=== PATIENT | male | born 1975 | race Two or more races ===

== ENCOUNTER 2025-05-04 23:58 | Emergency (ER) | payer MEDICAID, OTHER ==
[~2025-05-04] VITALS: Ht 185.4 cm; Wt 127.5 kg
[2025-05-04 23:59] VITALS: BP 154/95; RESP 20; TEMP 97.5; O2SAT 100
[2025-05-05 00:11] VITALS: PULSE 96
--- NOTE | 2025-05-05 00:25 | ECG ---
[facility] Test Date: 2025-05-05 Test Time: 00:11:13 Pat Name: SEBASTIEN LOCKETT Department: ED Room: Gender: Messenger Office: [place]SA : 1975 Requested By: BRUCE VOGT Order Number: [id number] Reading MD: Isiah Adam Measurements Intervals [place] Rate: 96 P: 73 TN: 172 QRS: 82 QRSD: 79 T: 60 QT: 353 QTc: 447 Interpretive Statements Sinus rhythm Electronically Signed On 05-05-2025 13:12:47 PDT by Isiah Adam Please click the below link to view image of tracing.
--- NOTE | 2025-05-05 00:27 | ED.PDOC ---
SOB-HPI HPI Comments 49 year old male presents to the ED with a chief complaint of shortness of breath onset today. Patient's states patient has been experiencing BLE swelling for the past 2 weeks, has been worsening. Patient's works at hospice care, was recommended to give patient Gabapentin to improve swelling. After taking gabapentin, patient is lethargic, experiencing shortness of breath. Denies any PMHx. Patient is a poor historian. No other symptoms or modifying factors present at this time. Chief Complaint: Shortness of Breath Time Seen by MD: 00:15 Reviewed notes: Medications, Allergies Information Source: Patient, Spouse Mode of Arrival: Ambulatory Severity: Moderate Timing: Hours Duration: Since onset Context: At Rest PE Risk Factors: None History of: None Prehospital treatment: Other (Gabapentin) Modifying Factors: Nothing Associated Signs and Symptoms: Leg Swelling Past Medical History PAST MEDICAL HISTORY: Denies Surgical History: Denies all surgeries Family History Family History: Reviewed,noncontributory to illness, No family hx of Cancer, No family hx of DM, No family hx of Heart kenzie, No family hx of HTN, No family hx ofKidney kenzie, No family hx of Liver kenzie, No family hx of Lung kenzie, No family hx of Stroke Social History Smoker: Non-Smoker Alcohol: Denies ETOH Use Drugs: Denies Drug Use Lives In: Home Constitutional: reports: others (lethargic); denies: chills, diaphoresis, fatigue, fever, malaise, sweats, weakness EENTM: denies: blurred vision, double vision, ear bleeding, ear discharge, ear drainage, ear pain, ear ringing, eye pain, eye redness, hearing loss, mouth pain, mouth swelling, nasal discharge, nose bleeding, nose congestion, nose pain, photophobia, tearing, throat pain, throat swelling, voice changes, others Respiratory: reports: shortness of breath; denies: cough, hemoptysis, orthopnea, SOB at rest, SOB with excertion, stridor, wheezing, others Cardiovascular: denies: chest pain, dizzy spells, diaphoresis, Dyspnea on exertion, edema, irregular heart beat, left arm pain, lightheadedness, palpitations, PND, syncope, others Gastrointestinal: denies: abdomen distended, abdominal pain, blood streaked bowels, constipated, diarrhea, dysphagia, difficulty swallowing, hematemesis, melena, nausea, poor appetite, poor fluid intake, rectal bleeding, rectal pain, vomiting, others Genitourinary: denies: burning, dysuria, flank pain, frequency, hematuria, incontinence, penile discharge, penile sore, pain, testicle pain, testicle swelling, urgency, others Neurological: denies: dizziness, fainting, headache, left sided numbness, left sided weakness, numbness, paresthesia, pre-existing deficit, right sided numbness, right sided weakness, seizure, speech problems, tingling, tremors, weakness, others Musculoskeletal: reports: others (BLE swelling); denies: back pain, gout, joint pain, joint swelling, muscle pain, muscle stiffness, neck pain Integumetry: denies: bruises, change in color, change in hair/nails, dryness, laceration, lesions, lumps, rash, wounds, others Allergic/Immunocompromised: denies: Difficulty Healing, Frequent Infections, Hives, Itching, others Hematologic/Lymphatic: denies: anemia, blood clots, easy bleeding, easy bruising, swollen glands, others Endocrine: denies: excessive hunger, excessive sweating, excessive thirst, excessive urination, flushing, intolerance to cold, intolerance to heat, unexplained weight gain, unexplained weight loss, others Psychiatric: denies: anxiety, bipolar disorder, depression, hopeless, panic disorder, schizophrenia, sleepless, suicidal, others All Other Systems: Reviewed and Negative Physical Exam General Appearance: Normal HEENT: Normal ENT Inspection, Pharynx Normal, TMs Normal Neck: Full Range of Motion, Non-Tender, Normal, Normal Inspection Respiratory: Chest Non-Tender, Lungs Clear, No Accessory Muscle Use, No Respiratory Distress, Normal Breath Sounds Cardiovascular: No Edema, No JVD, No Murmur, No Gallop, Normal Peripheral Pulses, Regular Rate/Rhythm Breast Exam: Deferred Gastrointestinal: No Organomegaly, Non Tender, No Pulsatile Mass, Normal Bowel Sounds, Soft Genitalia: Deferred Pelvic: Deferred Rectal: Deferred Extremities: No calf tenderness, Normal capillary refill, Normal inspection, Normal range of motion, Non-tender, No pedal edema Musculoskeletal : Apperance: Normal Neurologic: Alert, mesh cutter II-XII nml as Tested, No Motor Deficits, Normal Affect, Normal Mood, No Sensory Deficits Cerebellar Function: Normal Reflexes: Normal Skin: Dry, Normal Color, Warm Lymphatic: No Adenopathy Was a procedure done? Was a procedure done?: No Differential Dx Differential Diagnosis: Asthma, CHF, COPD, Pneumonia, Pneumothorax, Pulmonary Embolism, URI X-Ray, Labs, Meds, VS Vital Signs Date Time Temp Pulse Resp B/P (MAP) Pulse Ox O2 Delivery O2 Flow Rate FiO2 05/05/25 00:11 96 05/04/25 23:59 97.5 96 20 154/95 100 97.5 Lab Test 05/05/25 00:37 Range/Units White Blood Count 12.0 H 4.4-10.8 10^3/uL Red Blood Count 4.48 L 4.5-5.90 10^6/uL Hemoglobin 13.0 L 13.5-17.5 g/dL Hematocrit 38.9 L 41.0-53.0 % Mean Corpuscular Volume 86.8 80.0-100.0 fL Mean Corpuscular Hemoglobin 29.0 28.0-32.0 pg Mean Corpuscular Hemoglobin Concent 33.4 32.0-36.0 g/dL Red Cell Distribution Width 13.7 11.8-14.3 % Platelet Count 316 140-450 10^3/uL Mean Platelet Volume 7.7 6.9-10.8 fL Neutrophils (%) (Auto) 83.5 H 37.0-80.0 % Lymphocytes (%) (Auto) 8.7 L 10.0-50.0 % Monocytes (%) (Auto) 7.0 0.0-12.0 % Eosinophils (%) (Auto) 0.6 0.0-7.0 % Basophils (%) (Auto) 0.2 0.0-2.0 % Neutrophils # (Auto) 10.0 H 1.6-8.6 10 ^3/uL Lymphocytes # (Auto) 1.1 0.4-5.4 10 ^3/uL Monocytes # (Auto) 0.8 0-1.3 10 ^3/uL Eosinophils # (Auto) 0.1 0-0.8 10 ^3/uL Basophils # (Auto) 0 0-0.2 10 ^3/uL Nucleated Red Blood Cells 0.0 % Sodium Level 143 136-145 mmol/L Potassium Level 3.5 3.5-5.1 mmol/L Chloride Level 105 98-107 mmol/L Carbon Dioxide Level 32 H 20-31 mmol/L Anion Gap 6 5-15 Blood Urea Nitrogen < 5 L 9-23 mg/dL Creatinine 0.92 0.700-1.30 mg/dL Glomerular Filtration Rate Calc 102 >90 mL/min BUN/Creatinine Ratio 5.4 L 10.0-20.0 Serum Glucose 90 74-106 mg/dL Calcium Level 8.7 8.7-10.4 mg/dL Total Bilirubin 0.5 0.2-1.0 mg/dL Aspartate Amino Transferase (AST) 70 H 13-40 U/L Alanine Aminotransferase (ALT) 57 H 7-40 U/L Alkaline Phosphatase 62 46-116 U/L Troponin I High Sensitivity 4 </=54 ng/L B-Type Natriuretic Peptide 6.35 0-100 pg/mL Total Protein 6.6 5.7-8.2 g/dL Albumin 4.0 3.2-4.8 g/dL Time of 1ST Reevaluation: 00:45 Reevaluation 1ST: Unchanged Patient Education/Counseling: Diagnosis, Treatment Family Education/Counseling: Diagnosis, Treatment SEPSIS Sepsis Screen Date sepsis recognized/suspect: May 05, 2025 Time Sepsis recognized/suspect: 2024 Recent Procedure: No On Antibiotic Therapy: No Respiratory Rate >20: No Heart Rate >90: Yes Temp<36 C (96.8 F) or >38.3 C: No SBP <90 or MAP <65 mmHG: No New Acute Mental Status Change: No Is the patient on CPAP, BIPAP,: No Physician Orders Chest Xray 1 View (05/05/25 00:23) Vital Signs Date Time Temp Pulse Resp B/P (MAP) Pulse Ox O2 Delivery O2 Flow Rate FiO2 05/05/25 00:11 96 05/04/25 23:59 97.5 96 20 154/95 100 97.5 Laboratory Tests Test 05/05/25 00:37 White Blood Count 12.0 10^3/uL (4.4-10.8) H Departure 1 Departure Time of Disposition: 02:30 Impression: Primary Impression: Peripheral edema Additional Impression: Adverse drug reaction Disposition: HOME / SELF CARE / HOMELESS Condition: Stable e-Prescriptions Bumetanide (Bumetanide) 2 Mg Tab 1 TAB PO DAILY, #90 TAB 1 Refill Prov: BRUCE VOGT MD 05/05/25 Discharged With: Self Critical Care Note Critical Care Time?: No Stability Stability form required: No Heart Score Heart Score: Heart Score Response (Comments) Value History Slightly Suspicious 0 EKG Repolarization Disturb 1 Age 45-64 1 Risk Factors No known risk factors 0 Troponin Normal limit 0 Total 2 I personally scribed for BRUCE VOGT MD ([email or web address]) on 05/05/25 at 00:27. Electronically submitted by Magali Isaac [email or web address]). BRUCE VOGT MD May 05, 2025 00:27
--- NOTE | 2025-05-05 00:58 | DVH ---
CHEST RADIOGRAPH Indication: SOB Technique: 1 view Comparison: None FINDINGS: Lines and Tubes: None Lungs/Pleura: Low lung volumes with interstitial prominence. No focal consolidation, or pleural abno rmality. Cardiomediastinum: Unremarkable. Other: No acute osseous abnormality. IMPRESSION: 1. Interstitial opacities may reflect low lung volumes, edema or atypical infection.
[2025-05-05 01:22] LABS: Hematocrit 38.9 % (41.0-53.0); Hemoglobin 13.0 g/dL (13.5-17.5); Mean Corpuscular Hemoglobin 29.0 pg (28.0-32.0); Mean Corpuscular Volume 86.8 fL (80.0-100.0); Nucleated Red Blood Cells % 0.0 %
[2025-05-05 01:32] LABS: Albumin 4.0 g/dL (3.2-4.8); Alkaline Phosphatase 62 U/L (46-116); Anion Gap 6 (5-15); Chloride 105 mmol/L (98-107); Glucose 90 mg/dL (74-106); Sodium 143 mmol/L (136-145); Total Protein 6.6 g/dL (5.7-8.2)
[2025-05-05 01:33] LABS: Bilirubin, Total 0.5 mg/dL (0.2-1.0)
[2025-05-05 01:36] LABS: Alanine Aminotransferase 57 U/L (7-40); BUN/Creatinine Ratio 5.4 (10.0-20.0); Blood Urea Nitrogen < 5 mg/dL (9-23); Calcium 8.7 mg/dL (8.7-10.4); Carbon Dioxide 32 mmol/L (20-31); Potassium 3.5 mmol/L (3.5-5.1)
[2025-05-05] MEDS ORDERED: BUME2TAB5 PO (01:59)
== END 2025-05-05 03:15 | disposition left against medical advice (07) ==
LOC: ER 23:58
DX: R60.0 Localized edema (principal)
CPT/HCPCS: 36415; 71045; 80053; 83880; 84484; 85025; 93005